=== PATIENT | female | born 1965 | race Caucasian/White ===

== ENCOUNTER → 2016-06-17 | Outpatient (CLI) | payer OTHER ==
[~2016-06-17] MED LIST: ABILIFY 15MG TA15 MG PO; ALLEGRA ALLERGY60 MG PO; FLONASE ALLERG9.9 ML NAS; KLONOPIN 1MG1 M1 PO; LITHIUM 30300 MG/CAP PO; MELATIN3 MG PO; NORCO 325 MG-51 TAB PO; NUVARING VAG RING VG; PROZAC20 M1 PO; SYNTHROID0.075 MG/T PO
== END ==
LOC: RAD 10:55
DX: M79.661 Pain in right lower leg (principal); R22.41 Localized swelling, mass and lump, right lower limb

== ENCOUNTER 2016-06-30 08:05 | Outpatient (RCR) | payer OTHER ==
[2015-06-07 17:31] VITALS: BP 118/72
== END 2016-07-01 07:57 | disposition home or self-care (01) ==
LOC: PT 08:05
DX: M79.604 Pain in right leg (principal)

== ENCOUNTER → 2016-06-30 | Outpatient (CLI) | payer OTHER ==
[2015-06-07 17:31] VITALS: BP 118/72
== END ==
LOC: MAMMO 08:04
DX: Z12.31 Encounter for screening mammogram for malignant neoplasm of breast (principal)
CPT/HCPCS: G0202

== ENCOUNTER → 2017-07-05 | Outpatient (CLI) | payer OTHER ==
[2015-06-07 17:31] VITALS: BP 118/72
== END ==
LOC: MAMMO 08:21 → RAD 08:30
DX: Z12.31 Encounter for screening mammogram for malignant neoplasm of breast (principal)